=== PATIENT | male | born 1955 | race Caucasian/White ===

== ENCOUNTER → 2016-11-01 | Outpatient (CLI) | payer OTHER ==
[2016-11-01 17:39] LABS: Blood Urea Nitrogen 13 mg/dL (9-20); Non-African American GFR(MDRD) >60 (>60 ml/min/1.73 sqM)
--- NOTE | 2016-11-01 19:01 | CT ---
EXAMINATION TYPE: CT urogram wo/w con DATE OF EXAM: 11/01/2016 COMPARISON: NONE HISTORY: Hematuria. CT DLP: 1480.9 mGycm, Automated Exposure Control for Dose Reduction was Utilized. CONTRAST: CT scan of the abdomen and pelvis is performed with oral and without and with IV Contrast, patient in jected with 100 mL of Omnipaque 300. FINDINGS: There is mild subsegmental atelectasis at the left lung base. There is no pleural effusion. Liver spleen pancreas gallbladder appear normal. Bile ducts are not dilated. Kidneys have normal size and contour. There is no evidence of a renal calculus. There is normal contrast opacification of bot h kidneys. There is no hydronephrosis. There is no evidence of a renal mass. Ureters are not dilated. There is no retroperitoneal adenopathy. There is no ascites. Appendix appears normal. Bladder distend s smoothly. There are some prosthetic calcifications. I see no intestinal wall thickening. There are no dilated loops. I see no bony destructive process. Prostate is enlarged and measures 4.9 cm. IMPRESSION: Mild prostate enlargement. Normal kidneys ureters and urinary bladder. I do not see a cause for hematuria. No evidence of renal mass or obstruction. Small right inguinal hernia noted that contains omental fat
== END | disposition home or self-care (01) ==
LOC: RADCTMAIN 17:09
PROVIDERS: ATTEND Urology
DX: N40.0 Benign prostatic hyperplasia without lower urinary tract symptoms (principal); K40.90 Unilateral inguinal hernia, without obstruction or gangrene, not specified as recurrent
CPT/HCPCS: 82565; 84520; 74178; 36415; 74400; Q9967

== ENCOUNTER → 2019-01-04 | Outpatient (CLI) | payer OTHER | END | disposition home or self-care (01) | LOC: LABWHC1 15:07 | PROVIDERS: ATTEND Psychiatry & Neurology Neurology | DX: G35 Multiple sclerosis (principal) | CPT/HCPCS: 36415; 82306; 82607 ==

== ENCOUNTER → 2019-02-17 | Outpatient (CLI) | payer OTHER ==
--- NOTE | 2019-02-18 09:04 | MR ---
EXAMINATION TYPE: MR brain wo/w cspine wo DATE OF EXAM: 02/17/2019 COMPARISON: Outside MRI head and cervical spine July 09, 2018. HISTORY: cervical cysts/spondylosis with myelopathy, cerebral cysts. Spinal column and protrusion per patient. Reevaluation for multiple sclerosis per patient. TECHNIQUE: Multiplanar, multisequence images of the brain and brainstem is performed without and with IV contras t, utilizing 8 mL intravenous Gadavist . MRI cervical spine is performed without contrast. Demyelinat ing disease protocol not performed. FINDINGS: Brain: Diffusion weighted images demonstrate no evidence of a recent infarct or other diffusion abnormality. There is no worrisome extra-axial fluid collection. The ventricular system and cisternal spaces ar e normal in size and appearance. The brain volume is age appropriate. Some scattered foci of T2 hype rintensity are redemonstrated throughout the white matter bilaterally. Largest reference lesion poste rior left frontal lobe at level of centrum semiovale measures 7 mm axial image 22 not significant ch anged in size or appearance from prior study. Estimate approximately 20-30 small scattered lesions. S ubtle elongated 6 mm lesion left cerebellar hemispheric symmetry is stable from prior. In the right t emporal lobe there is persistent lobulated lesion of T1 hypointensity and T2 hyperintensity measuring 1.3 x 1.2 x 0.8 cm craniocaudal dimension without nodularity or nodular enhancement not significantl y changed in size or appearance from prior study favoring neuroenteric cyst. Midline structures demonstrate normal morphology. The craniocervical junction appears within normal limits. Post contrast images demonstrate no abnormal enhancement. The dural venous sinuses appear pa tent. The visualized sinuses are clear and the globes are intact. IMPRESSION: Mild to moderate nonspecific white matter changes redemonstrated. No new or enhancing les ions are seen. 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 C-Spine: FINDINGS: Sagittal images of the cervical spine show the craniocervical junction to remaining within normal limits. The cervical and upper thoracic spinal cord is normal in course, caliber, and signal. Some straightening of cervical spine redemonstrated. The vertebral body heights remain normal. Mode rate disc space narrowing C6-C7 level again seen. The bone marrow signal intensity is within normal l imits. Axial images show the C2-C3 level to remain within normal limits. Axial images at C3-C4 level shows central disc protrusion effacing anterior thecal sac with uncoverte bral facet degenerative changes bilaterally causing mild bilateral neural foraminal narrowing. Axial images at C4-C5 level redemonstrates small right paracentral disc protrusion effacing anterior thecal sac, bilateral neural foramina are patent. Axial images at C5-C6 level show broad-based lobulated right paracentral disc protrusion effacing the anterior thecal sac with uncovertebral facet degenerative change causing mild bilateral neural jak inal narrowing. Axial images at C6-C7 levels with broad-based right paracentral disc protrusion effacing the anterola teral thecal sac with uncovertebral facet degenerative change causing moderate right greater than lef t bilateral neural foraminal narrowing. Axial images at C7-T1 level are within normal limits. IMPRESSION: Straightening of cervical spine with multilevel degenerative changes most prominent C6-C7 level as detailed above. Overall no significant change from outside MRI.
== END | disposition home or self-care (01) ==
LOC: RADMRIMAIN 10:35
PROVIDERS: ATTEND Neurological Surgery
DX: G93.89 Other specified disorders of brain (principal); R90.89 Other abnormal findings on diagnostic imaging of central nervous system; M47.12 Other spondylosis with myelopathy, cervical region
CPT/HCPCS: 70553; 72141; A9585

== ENCOUNTER → 2020-01-21 | Outpatient (CLI) | payer OTHER ==
[2020-01-21 08:45] LABS: Basophils # (A) 0.1 k/uL (0-0.2); Basophils % (A) 1 %; Eosinophils # (A) 0.3 k/uL (0-0.7); Eosinophils % (A) 4 %; Lymphocytes # (A) 0.9 k/uL (1.0-4.8); Lymphocytes % (A) 13 %; MCH 30.4 pg (25.0-35.0); MCHC 34.1 g/dL (31.0-37.0); MCV 89.3 fL (80.0-100.0); Mean Platelet Volume 7.2; Monocytes # (A) 0.5 k/uL (0-1.0); Monocytes % (A) 7 %; Neutrophils # (A) 5.4 k/uL (1.3-7.7); Neutrophils % (A) 75 %; Platelet Count 300 k/uL (150-450); RBC 4.93 m/uL (4.30-5.90); RDW 13.2 % (11.5-15.5); WBC 7.1 k/uL (3.8-10.6)
[2020-01-21 15:13] LABS: African American GFR (CKD) 82.4 (60.0-200.0); Albumin 4.4 g/dL (3.80-4.90); Albumin/Globulin Ratio 2.2 (1.60-3.17); Anion Gap 8.7 mmol/L (4.00-12.00); BUN/Creat Ratio 13.64 Ratio (12.00-20.00); Carbon Dioxide 26.3 mmol/L (21.6-31.8); Chol/HDL Ratio 3.44; LDL Cholesterol,Calculated 42.2 mg/dL (0.0-131.0); Magnesium 1.9 mg/dL (1.5-2.4); Non-African American GFR(CKD) 71.1 (60.0-200.0); Potassium 3.8 mmol/L (3.5-5.5); Total Bilirubin 0.4 mg/dL (0.2-1.2); Total Protein 6.4 g/dL (6.2-8.2); VLDL Calculation 45.8 mg/dL (5.00-40.00)
[2020-01-21 15:20] LABS: PSA Annual Screen 1.2 ng/mL (0.0-4.0)
[2020-01-21 18:20] LABS: Hemoglobin A1C 6.9 % (4.0-6.0)
== END | disposition home or self-care (01) ==
LOC: LABWHC1 08:23
PROVIDERS: ATTEND Family Medicine
DX: G35 Multiple sclerosis (principal); E11.9 Type 2 diabetes mellitus without complications; I10 Essential (primary) hypertension; E78.5 Hyperlipidemia, unspecified; Z79.899 Other long term (current) drug therapy; Z12.5 Encounter for screening for malignant neoplasm of prostate
CPT/HCPCS: 80061; 80053; 84443; 82550; 83735; 85025; 83036; 36415; G0103

== ENCOUNTER → 2022-08-09 | Outpatient (CLI) | payer MEDICARE ==
[2022-08-09 16:10] LABS: Basophils # (A) 0.08 X 10*3/uL (0.00-0.10); Basophils % (A) 1.1 %; Eosinophils # (A) 0.27 X 10*3/uL (0.04-0.35); Eosinophils % (A) 3.7 %; HGB 15.7 d/dL (12.0-15.0); Lymphocytes # (A) 1.63 X 10*3/uL (0.90-5.00); Lymphocytes % (A) 22.3 %; MCHC 33.4 d/dL (32.0-37.0); MCV 92.9 FL (80.0-97.0); Mean Platelet Volume 9.4 FL (9.5-12.2); Monocytes # (A) 0.61 X 10*3/uL (0.20-1.00); Monocytes % (A) 8.4 %; NRBC Per 100 WBC 0 X 10*3/uL (0.00-0.01); Neutrophils # (A) 4.63 X 10*3/uL (1.80-7.70); Neutrophils % (A) 63.4 %; Platelet Count 286 X 10*3/uL (140-440); RBC 5.06 X 10*6/uL (4.40-5.60); RDW 12.5 % (11.5-14.5)
[2022-08-09 17:24] LABS: ALT 20 U/L (10-49); AST 12 U/L (14-35); Albumin 4.8 d/dL (3.8-4.9); Albumin/Globulin Ratio 2.29 Ratio (1.60-3.17); Alkaline Phosphatase 61 U/L (41-126); Calcium 9.1 mg/dL (8.7-10.3); Carbon Dioxide 23.8 mmol/L (21.6-31.8); Chloride 104 mmol/L (96-109); Globulin 2.1 d/dL (1.6-3.3); Glucose 208 mg/dL (70-110); Potassium 4.2 mmol/L (3.5-5.5); Sodium 142 mmol/L (135-145); Total Bilirubin <0.2 mg/dL (0.3-1.2); Total Protein 6.9 d/dL (6.2-8.2)
[2022-08-13 09:23] LABS: Chol/HDL Ratio 3.76 Ratio; LDL Cholesterol,Calculated 49.6 mg/dL (0.0-131.0)
== END | disposition home or self-care (01) ==
LOC: LABWHC1 07:53
PROVIDERS: ATTEND Internal Medicine
DX: Z00.00 Encounter for general adult medical examination without abnormal findings (principal); Z12.5 Encounter for screening for malignant neoplasm of prostate; Z11.59 Encounter for screening for other viral diseases; E11.9 Type 2 diabetes mellitus without complications; E55.9 Vitamin D deficiency, unspecified
CPT/HCPCS: 36415; 80053; 80061; 82306; 83036; 84153; 84443; 85025; 86803

== ENCOUNTER → 2024-05-17 | Outpatient (CLI) | payer MEDICARE ==
[2024-05-17 15:16] LABS: Basophils # (A) 0.05 X 10*3/uL (0.00-0.10); Basophils % (A) 0.7 %; Eosinophils # (A) 0.19 X 10*3/uL (0.04-0.35); Eosinophils % (A) 2.7 %; HCT 42.3 % (39.6-50.0); HGB 14.2 g/dL (13.0-17.0); Lymphocytes # (A) 1.62 X 10*3/uL (0.90-5.00); Lymphocytes % (A) 23.2 %; MCH 30.6 pg (27.0-32.0); MCHC 33.6 g/dL (32.0-37.0); MCV 91.2 FL (80.0-97.0); Mean Platelet Volume 10.9 FL (9.5-12.2); Monocytes # (A) 0.62 X 10*3/uL (0.20-1.00); Monocytes % (A) 8.9 %; NRBC Per 100 WBC 0 X 10*3/uL (0.00-0.01); Neutrophils # (A) 4.44 X 10*3/uL (1.80-7.70); Neutrophils % (A) 63.6 %; Platelet Count 285 X 10*3/uL (140-440); RBC 4.64 X 10*6/uL (4.40-5.60); RDW 12.8 % (11.5-14.5); WBC 6.98 X 10*3/uL (4.50-10.00)
[2024-05-17 15:21] LABS: ALT 15 U/L (10-49); AST 17 U/L (14-35); Albumin 4.4 g/dL (3.8-4.9); Albumin/Globulin Ratio 1.76 Ratio (1.60-3.17); Alkaline Phosphatase 47 U/L (41-126); Blood Urea Nitrogen 14.3 mg/dL (9.0-27.0); Carbon Dioxide 25.2 mmol/L (21.6-31.8); Chloride 106 mmol/L (96-109); Chol/HDL Ratio 3.73 Ratio; Globulin 2.5 g/dL (1.6-3.3); Glucose 175 mg/dL (70-110); LDL Cholesterol,Calculated 45.2 mg/dL (0.0-131.0); Potassium 3.9 mmol/L (3.5-5.5); Sodium 144 mmol/L (135-145); Total Bilirubin 0.3 mg/dL (0.3-1.2); Total Protein 6.9 g/dL (6.2-8.2)
[2024-05-17 18:51] LABS: Microalbumin Creatinine Ratio <15 mg/g Cr (0-30)
== END | disposition home or self-care (01) ==
LOC: LABWHC1 08:41
PROVIDERS: ATTEND Internal Medicine
DX: Z12.5 Encounter for screening for malignant neoplasm of prostate (principal); I10 Essential (primary) hypertension; E11.9 Type 2 diabetes mellitus without complications; E55.9 Vitamin D deficiency, unspecified; E78.5 Hyperlipidemia, unspecified
CPT/HCPCS: 80061; 80053; 84443; 83735; 85025; 82306; 82043; 82570; 36415; G0103

== ENCOUNTER 2024-06-29 09:09 | Day surgery (SDC) | payer MEDICARE ==
[2024-06-25 14:11] VITALS: BMI 28.0
[~2024-06-29 09:09] MED LIST: LIDOCAINE 1% (10MG/ML) FOR IV START INTRADERMA PRN
[2024-06-29 09:39] VITALS: TEMP 97.2
[2024-06-29] MEDS: IV FLUID CONTINUATION 1,000 ML IV ONE (10:02)
[2024-06-29] MEDS: LACTATED RINGERS 1,000 ML IV SCH (10:03)
[2024-06-29 10:06] LABS: Glucose,Whole Blood 98 mg/dL (70-110)
[2024-06-29] MEDS ORDERED: PROPOFOL 10 MG/ML 20 ML VIAL IV ONE (10:23)
--- NOTE | 2024-06-29 10:38 | P.PCN ---
Date of Procedure: 06/29/24 Procedure(s) Performed: BRIEF HISTORY: Patient is a 69-year-old pleasant white male scheduled for an elective colonoscopy as a part of screening for colon cancer/positive Cologuard. PROCEDURE PERFORMED: Colonoscopy. PREOPERATIVE DIAGNOSIS: Screening for colon cancer/positive Cologuard. IV sedation per Anesthesia. PROCEDURE: After informed consent was obtained, the patient, was brought into the endoscopy unit. IV sedation was administered by Anesthesia under continuous monitoring. Digital rectal examination was normal. Initially the Olympus CF-160 flexible video colonoscope was then inserted in the rectum, gradually advanced into the cecum without any difficulty. Careful examination was performed as the scope was gradually being withdrawn. Ileocecal valve and the appendiceal orifice were visualized and appeared normal. Prep was excellent. Mucosa of the cecum, ascending colon, transverse colon, descending colon, sigmoid colon, and rectum appeared normal. Retroflexion was performed in the rectum and no lesions were seen. The patient tolerated the procedure well. IMPRESSION: Normal-appearing colon from rectum to cecum with no evidence of colorectal neoplasia. RECOMMENDATIONS: Findings of this examination were discussed with the patient as well as his family. He was advised to have repeat screening colonoscopy in 10 years..
[2024-06-29 10:49] VITALS: RESP 14
[2024-06-29 11:22] VITALS: BP 147/88; PULSE 80
== END 2024-06-29 11:33 | disposition home or self-care (01) ==
LOC: ORWHC2ENDO 09:09
PROVIDERS: ATTEND Internal Medicine Gastroenterology
DX: Z12.11 Encounter for screening for malignant neoplasm of colon (principal); I25.2 Old myocardial infarction; I10 Essential (primary) hypertension; E78.5 Hyperlipidemia, unspecified; G35 Multiple sclerosis; E11.9 Type 2 diabetes mellitus without complications; F17.200 Nicotine dependence, unspecified, uncomplicated; Z95.5 Presence of coronary angioplasty implant and graft; Z79.84 Long term (current) use of oral hypoglycemic drugs; Z79.899 Other long term (current) drug therapy
CPT/HCPCS: J2704; G0121